=== PATIENT | male | born 1960 | race Caucasian/White ===

== ENCOUNTER 2021-10-04 19:28 | Emergency (ER) | payer OTHER ==
[~2021-10-04] VITALS: Ht 180.3 cm; Wt 80.7 kg
[2021-10-04] MEDS ORDERED: INVEGA1.5 MG PO (20:19)
[2021-10-04 21:50] VITALS: BP 128/88
== END 2021-10-04 21:52 | disposition home or self-care (01) ==
LOC: ER 19:28
DX: R20.2 Paresthesia of skin (principal); F20.9 Schizophrenia, unspecified; F17.200 Nicotine dependence, unspecified, uncomplicated; Z86.16 Personal history of COVID-19; Z79.899 Other long term (current) drug therapy